=== PATIENT | male | born 1955 | race Caucasian/White ===

== ENCOUNTER 2019-02-10 18:21 | Emergency (ER) | payer OTHER ==
[~2019-02-10] VITALS: Ht 190.5 cm; Wt 113.4 kg
[2019-02-10 18:25] VITALS: Ht 190.5 cm; Wt 113.4 kg
[2019-02-10 20:40] LABS: BASOPHIL % 0.7 % (0-2); PLATELET COUNT 234 x10^3mcL (130-400)
[2019-02-10 21:09] LABS: CALCIUM 8.9 mg/dL (8.5-10.1); CARBON DIOXIDE 25.5 mmol/L (21-32); CHLORIDE SERUM 108 mmol/L (98-107); CREATININE SERUM 1.2 mg/dL (0.7-1.3); GFR1 > 60 mL/min; GLUCOSE SERUM 107 mg/dL (74-106); POTASSIUM SERUM 3.7 mmol/L (3.5-5.1); SODIUM SERUM 144 mmol/L (136-145)
[2019-02-10 21:22] LABS: ALBUMIN 3.4 g/dL (3.4-5.0); ALKALINE PHOSPHATASE 94 U/L (46-116); ALT/SGPT 24 U/L (16-63); AST/SGOT 12 U/L (15-37); BILIRUBIN TOTAL 0.39 mg/dL (0.20-1.00); CHOLESTEROL 142 mg/dL (<200); HDL CHOLESTEROL 48 mg/dL (40-60); LIPASE 69 IU/L (73-393); MAGNESIUM 2.3 mg/dL (1.8-2.4); T4(THYROXINE) 9.3 ug/dL (4.7-13.3); TOTAL PROTEIN, SERUM 6.8 g/dL (6.4-8.2)
[2019-02-10 22:29] LABS: UA SPECIFIC GRAVITY <=1.005 (1.005-1.035); microscopic required? YES; urine erythrocyte 1+ (NEGATIVE)
[2019-02-10 22:38] LABS: AMPHETAMINE QUAL UR NONE DETECTED (See below)
[2019-02-10 23:40] VITALS: BP 127/69
== END 2019-02-10 23:40 | disposition home or self-care (01) ==
LOC: ED 18:21
PROVIDERS: Emergency Medicine
DX: B35.6 Tinea cruris (principal); I10 Essential (primary) hypertension; R60.0 Localized edema; F17.210 Nicotine dependence, cigarettes, uncomplicated; I45.10 Unspecified right bundle-branch block; E78.00 Pure hypercholesterolemia, unspecified; E11.9 Type 2 diabetes mellitus without complications; Z98.890 Other specified postprocedural states; R10.9 Unspecified abdominal pain
CPT/HCPCS: 82962; 99406; J1940; Q0092